=== PATIENT | male | born 1955 | race Caucasian/White ===

== ENCOUNTER → 2017-07-26 10:09 | Outpatient (CLI) | payer OTHER, SELFPAY ==
[2017-07-26 11:50] LABS: PSA,Total- Diagnostic 3.01 ng/mL (0.0-4.0)
== END ==
PROVIDERS: Family Provider Family Medicine; PCP Family Medicine; Visit Provider Urology
DX: R97.20 Elevated prostate specific antigen [PSA] (principal)
CPT/HCPCS: 36415; 84153

== ENCOUNTER → 2018-08-08 | Outpatient (CLI) | payer OTHER, SELFPAY ==
[2018-08-08 13:15] LABS: PSA,Total - Annual Screen 1.78 ng/mL (0.00-4.00)
== END | disposition home or self-care (01) ==
LOC: LAB 12:11
PROVIDERS: Family Provider Family Medicine; PCP Family Medicine; Referring Provider Urology; Visit Provider Urology
DX: Z12.5 Encounter for screening for malignant neoplasm of prostate (principal)
CPT/HCPCS: 36415; 84153; G0103

== ENCOUNTER 2020-01-29 20:19 | Emergency (ER) | payer OTHER, SELFPAY ==
[2020-01-29 20:19] VITALS: BP 164/92; PULSE 62; RESP 18; TEMP 35.8; O2SAT 100; BMI 29.5
--- NOTE | 2020-01-29 20:28 | CT_ITS ---
STUDY: CT ABDOMEN AND PELVIS WITHOUT CONTRAST REASON FOR EXAM: Male, 65 years old. LEFT SIDE FLANK PAIN THAT WRAPS AROUND LOWER ABD SINCE 1900 RADIATION DOSAGE (If Supplied By Facility): CTDIvol = ( 12.16 ) mGy, DLP = ( 659.35 ) mGycm TECHNIQUE: Transaxial images were obtained from the dome of the diaphragm to the symphysis pubis without oral contrast, and without intravenous contrast. Sagittal and coronal images were reconstructed. Individualized dose optimization techniques were used for this CT. COMPARISON: CT chest 04/16/2017 FINDINGS: The visualized lung bases are unremarkable. Calcified mitral annulus. Low-density lesion in the right hepatic lobe near the gallbladder fossa measuring 37 x 28 mm on image 63 of series 2, not significantly changed compared to prior study. MRI correlation is recommended if possible. Multiple gallstones. Normal spleen. 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 Normal pancreas. Normal bilateral adrenal glands. Bilateral nonobstructing renal stones. 4 cm left renal cyst. 5 mm stone in the distal left ureter at the level of the ureterovesical junction with changes of mild acute obstructive uropathy. Normal visualized stomach. Normal small intestine. Normal colon. Multiple appendicoliths. No evidence of acute appendicitis. Normal abdominal aorta. Normal inferior vena cava. Normal retroperitoneum. Normal urinary bladder. Anterior abdominal wall hernia repair. There are diffuse degenerative changes of the visualized lumbar spine. CT/Abdomen/Pelvis without Cont IMPRESSION: 5 mm stone in the distal left ureter at the level of the ureterovesical junction with changes of mild acute obstructive uropathy. Low-density lesion in the right hepatic lobe near the gallbladder fossa measuring 37 x 28 mm, not significantly changed compared to prior study. Follow-up MRI correlation is recommended if possible. Multiple gallstones. Stable splenic artery aneurysm. Electronically Signed: Kyle Corona MD at 21:42 EDT Tel , Service support ,
--- NOTE | 2020-01-29 20:30 | ED.DCSUM_ITS ---
History of Present Illness Chief Complaint: Flank Pain Informant: Patient Onset: Hours Context: Sudden Onset Timing: Continuous, Waxes and wanes Quality: Pain Location: Initially left leg now anterior left abdomen radiating to groin Current Severity: Severe Maximum Severity: Severe Worsened by: Nothing Relieved by: Nothing Associated Symptoms: Nausea and sense of fullness and urgency Narrative: Patient is 65-year-old male with history of hypertension who presents with abrupt onset of left flank pain that radiated anteriorly to the abdomen and now groin with urgency and nausea. He has no prior history of renal ureterolithiasis. He denies history of diverticulosis diverticulitis. There is no history of trauma. He denies prior experience. He denies fever or chills. He denies any other symptoms. Prior similar symptoms: No Recent Illness/Hospitalization: No - Past Medical History (1) History of hypertension Status: Acute Past Medical History - Allergies and Home Meds Allergies/Adverse Reactions: Allergies No Known Allergies Allergy (Verified 01/29/20 20:22) Primary Care Physician: Ha Randle MD [Primary Care Provider] - Prior records reviewed: Yes Surgical History: no surgical history Lives: Spouse/ Significant Other Smoking Status: Never smoker Alcohol: Rare Drugs: None Review of Systems General: Denies: Chills, Fever, Malaise, Subjective ENT: Denies: Rhinorrhea, Sore throat Cardiovascular: Denies: Chest pain, Palpitations Respiratory: Denies: Dyspnea, Cough, Dyspnea on exertion Gastrointestinal: Reports: Abdominal pain, Nausea. Denies: Vomiting, Diarrhea, Constipation, Melena, Hematochezia, -, - Genitourinary: Reports: - - Urgency. Denies: Dysuria, Hematuria, Frequency, - Musculoskeletal: Reports: Back pain. Denies: Myalgias, Arthralgias, Neck pain, Swelling, Extremity Pain, -, - Neurological: Denies: Headache, Weakness Hematologic: Denies: Easy bruising, Easy bleeding Allergy: Denies: Uticaria Physical Exam Vital Signs/Narrative: Vital Signs Temp Pulse Resp BP Pulse Ox 01/29/20 20:19 96.5 F L 62 18 164/92 H 100 Inital Vital Signs reviewed: Yes General: Well nourished, Well developed, No Acute Distress Head: Normocephalic, Atraumatic Eyes: Perrl, EOMI ENT: Moist mucous membranes, No rhinorrhea Neck: Supple, Nontender Cardiovascular: Regular rate, Regular rhythm, No murmurs Respiratory: No distress, CTA bilaterally, Chest nontender Abdomen: Soft, Nontender, Nondistended, Normal bowel sounds Back: Nontender, Normal Inspection, CVA tenderness - On the left mild Extremities: Nontender, No edema Skin: Normal color, No rash, No Trauma. Negative for: Cyanosis, Diaphoresis, Jaundice Neurological: Alert, Oriented x3, Cranial nerves II-XII grossly intact, Normal Strength, Normal Sensation, Normal Gait Psychological: Normal affect, Normal Mood Diagnostic/Tx/Re-eval 01/29/20 20:28 Abdomen/Pelvis without Cont [CT] Stat Laboratory Results 01/29/20 01/29/20 01/29/20 20:25 20:30 20:30 WBC 9.7 RBC 4.70 Hgb 14.0 Hct 42.7 MCV 90.9 MCH 29.8 MCHC 32.8 RDW Std Deviation 43.7 RDW Coeff of [place] 13.2 Plt Count 404 MPV 9.8 Immature Gran % (Auto) 0.200 Neut % (Auto) 54.5 Lymph % (Auto) 34.6 [place] % (Auto) 6.2 Eos % (Auto) 3.4 Baso % (Auto) 1.1 H Absolute Neuts (auto) 5.3 Absolute Lymphs (auto) 3.35 Nucleated RBC % 0 Sodium 139 Potassium 3.9 Chloride 107 Carbon Dioxide 27.0 Anion Gap 5 BUN 20 H Creatinine 1.15 Estim Creat Clear Calc 67.00 Est GFR (MDRD) Af Amer 82 Est GFR (MDRD) Non-Af 68 BUN/Creatinine Ratio 17.4 Glucose 119 H Calcium 9.9 Urine Color Yellow Urine Clarity Cloudy Urine pH 6.0 Ur Specific [place] 1.020 Urine Protein 30 H Urine Glucose (UA) Normal Urine Ketones 5 H Urine Occult Blood 250 H Urine Nitrite Negative Urine Bilirubin Negative Urine Urobilinogen Normal Ur Leukocyte Esterase 25 H Urine RBC > 100 SEEN Urine WBC 0-5 SEEN Ur Squamous Epith Cells 0 SEEN Urine Bacteria RARE Urine Mucus [address] was interpreted by me as a 4 mm UVJ stone with hydronephrosis and hydroureter. There is also a renal calculus noted on the left side. Patient was reevaluated and is markedly better. - Medical Decision Making She presents with abrupt onset of flank pain rating anteriorly suspect directing ureteral stone also would include pyelonephritis, obstruction for other reason, perforated viscus. He was medicated with Zofran and Toradol. CT of the abdomen pelvis contrast was ordered as well as blood work to assess renal function, white count and urine. ED Disposition - Plan for ED Patient: Disposition: Home or Assisted Living Diagnosis: Hydronephrosis concurrent with and due to calculi of kidney and ureter Instructions: ED Renal Stone w Colic Prescriptions: Naproxen [Naprosyn] 500 mg PO BID #14 tab Prescription Printed Oxycodone HCl/Acetaminophen [Percocet 5/325] 1 tab PO Q6H PRN PRN 5 Days #20 tab PRN Reason: pain Prescription Printed Referrals: Ha Randle MD [Primary Care Provider] - Sina Oliver MD [STAFF PHYSICIAN] - 5-7 Days
[2020-01-29] MEDS: 0.9% Normal Saline 1,000 ML 250 ML IV (20:35)
[2020-01-29] MEDS: Ondansetron 4 MG/2 ML Vial IV (20:35)
[2020-01-29] MEDS: Ketorolac 15 MG/ML Vial IV (20:35)
[2020-01-29 20:47] LABS: Mucous, Urine 0 SEEN /hpf (<or=2+); Squamous Epithelial Cells - UA 0 SEEN /hpf (0-5)
[2020-01-29 20:52] LABS: Absolute Lymphocyte Count 3.35 X10^3/uL (0.83-4.51); Absolute Neutrophil Count 5.3 X10^3/uL (2.0-7.7); Basophil# 0.11 X10^3/uL; Basophil% 1.1 % (0-1); Eosinophil# 0.33 X10^3/uL; Eosinophils% 3.4 % (0-5); Hematocrit 42.7 % (40-54); Lymphocyte # 3.35 X10^3/ul (4.0); Lymphocyte % 34.6 % (19-41); Mean Corp Hgb Conc 32.8 g/dL (32-36); Mean Corpuscular Hgb 29.8 pg (27.0-32.0); Mean Corpuscular Volume 90.9 fL (80-94); Mean Platelet Vol. 9.8 fl (6.2-12.0); Monocyte% 6.2 % (0-10); NRBC Flagged by Analyzer 0 % (0-5); Neutrophil # 5.27 X10^3/uL (2.7-7.7); Neutrophil % 54.5 % (47-70); Platelet Count 404 K/mm3 (150-450); RBC Distribution Width CV 13.2 % (11.6-14.6); RBC Distribution Width SD 43.7 fl (35.1-43.9); White Blood Count 9.7 K/mm3 (4.4-11.0)
[2020-01-29 21:05] LABS: Color, Urine Yellow (Yellow); Glucose, Dipstick Normal (Normal); Ketone-Dipstick 5 mg/dl (Negative); Leukocyte Esterase-Dipstick 25 /ul (Negative); Nitrite-Dipstick Negative (Negative); Occult Blood-Urine 250 /ul (Negative); Protein-Dipstick 30 mg/dl (Negative); Urine Bilirubin Dipstick Negative (Negative); Urine Clarity Cloudy (Clear); Urine Urobilinogen Normal (Normal)
[2020-01-29 21:10] LABS: Anion Gap 5 (5-15); BUN 20 mg/dL (7-18); BUN/Creat Ratio 17.4 RATIO (10-20); Calcium,Total 9.9 mg/dL (8.5-10.1); Chloride 107 mmol/L (98-107); Creatinine, Serum 1.15 mg/dL (0.70-1.30); EST Glomerular Filtration Rate 68 mL/min (>60); Est Glom Filt Rate - Afr Amer 82 mL/min (>60); Glucose 119 mg/dL (74-106); Potassium 3.9 mmol/L (3.5-5.1); Sodium Level 139 mmol/L (136-145)
[2020-01-29 21:19] LABS: White Blood Cells 0-5 SEEN /hpf (0-5)
[2020-01-29 21:21] LABS: Bacteria RARE /hpf (None Seen); Red Blood Cells-Urine > 100 SEEN /hpf (0-5)
[2020-01-29 21:52] VITALS: BP 167/85; PULSE 64; RESP 17; O2SAT 96
== END 2020-01-29 22:12 | disposition home or self-care (01) ==
PROVIDERS: Emergency Provider Emergency Medicine; PCP Family Medicine
DX: N13.2 Hydronephrosis with renal and ureteral calculous obstruction (principal); I10 Essential (primary) hypertension; Z79.899 Other long term (current) drug therapy
CPT/HCPCS: 74176; 80048; 81001; 85025; 96361; 96374; 96375; 99281; A4216; J2405

== ENCOUNTER → 2020-02-05 | Outpatient (CLI) | payer OTHER, SELFPAY ==
[2020-01-29 20:19] VITALS: BMI 29.5
[2020-02-05 11:19] LABS: PSA,Total- Diagnostic 2.09 ng/mL (0.0-4.0)
[2020-02-22 15:37] LABS: Source Not Provided
[2020-02-22 15:38] LABS: Ca Oxalate, Monohydrate 100
== END | disposition home or self-care (01) ==
PROVIDERS: PCP Family Medicine; Referring Provider Urology; Visit Provider Urology
DX: N20.0 Calculus of kidney (principal); R97.20 Elevated prostate specific antigen [PSA]
CPT/HCPCS: 36415; 82360; 84153

== ENCOUNTER → 2022-12-21 | Outpatient (CLI) | payer MEDICARE, SELFPAY ==
[2022-12-21 11:28] LABS: PSA,Total - Annual Screen 2.07 ng/mL (0.00-4.00)
== END | disposition home or self-care (01) ==
LOC: LAB 10:25
PROVIDERS: PCP Family Medicine; Referring Provider Urology; Visit Provider Urology
DX: Z12.5 Encounter for screening for malignant neoplasm of prostate (principal)
CPT/HCPCS: 36415; 84153; G0103

== ENCOUNTER → 2023-12-28 | Outpatient (CLI) | payer MEDICARE, SELFPAY ==
[2023-12-28 12:04] LABS: PSA,Total - Annual Screen 2.14 ng/mL (0.00-4.00)
== END | disposition home or self-care (01) ==
PROVIDERS: PCP Family Medicine; Referring Provider Urology; Visit Provider Urology
DX: Z12.5 Encounter for screening for malignant neoplasm of prostate (principal)
CPT/HCPCS: 36415; 84153; G0103

== ENCOUNTER → 2024-12-28 | Outpatient (CLI) | payer MEDICARE, SELFPAY ==
[2024-12-28 15:13] LABS: PSA,Total- Diagnostic 2.20 ng/mL (0.00-4.00)
== END | disposition home or self-care (01) ==
LOC: LAB 13:46
PROVIDERS: PCP Family Medicine; Referring Provider Urology; Visit Provider Urology
DX: N40.1 Benign prostatic hyperplasia with lower urinary tract symptoms (principal)
CPT/HCPCS: 36415; 84153